=== PATIENT | female | born 1980 | race Caucasian/White ===

== ENCOUNTER 2019-01-28 13:20 | Outpatient (RCR) | payer OTHER, SELFPAY | END 2019-02-01 23:59 | LOC: NS 13:20 | PROVIDERS: Visit Provider Family Medicine | DX: Z71.3 Dietary counseling and surveillance (principal); E66.3 Overweight; Z68.41 Body mass index [BMI] 40.0-44.9, adult | CPT/HCPCS: 97802 ==

== ENCOUNTER 2019-02-14 11:59 | Outpatient (RCR) | payer OTHER, SELFPAY ==
[2014-10-03 16:41] VITALS: BMI 38.5
== END 2019-03-04 23:59 ==
LOC: NS 11:59
PROVIDERS: Visit Provider Family Medicine
DX: Z71.3 Dietary counseling and surveillance (principal); E66.3 Overweight; Z68.41 Body mass index [BMI] 40.0-44.9, adult
CPT/HCPCS: 97803

== ENCOUNTER 2019-04-04 13:00 | Outpatient (RCR) | payer OTHER, SELFPAY ==
[2014-10-03 16:41] VITALS: BMI 38.5
== END 2019-04-04 23:59 ==
LOC: NS 13:00
PROVIDERS: Visit Provider Family Medicine
DX: Z71.3 Dietary counseling and surveillance (principal); E66.3 Overweight; Z68.41 Body mass index [BMI] 40.0-44.9, adult
CPT/HCPCS: 97803

== ENCOUNTER 2019-04-22 14:31 | Outpatient (RCR) | payer OTHER, SELFPAY ==
[2014-10-03 16:41] VITALS: BMI 38.5
== END 2019-05-03 23:59 ==
LOC: NS 14:31
PROVIDERS: Visit Provider Family Medicine
DX: Z71.3 Dietary counseling and surveillance (principal); E66.3 Overweight; Z68.41 Body mass index [BMI] 40.0-44.9, adult
CPT/HCPCS: 97803

== ENCOUNTER → 2019-05-09 13:00 | Outpatient (CLI) | payer OTHER, SELFPAY ==
--- NOTE | 2019-05-05 20:40 | HP.PCM_ITS ---
History and Physical History and Physical [facility] Patient Name: Renetta Cyr : 1980 From: LEONORA MORTON PA-C DATE OF SURGERY: 05/28/2019 SCHEDULED PROCEDURE: right total hip arthroplasty with femoral osteotomy HISTORY OF PRESENT ILLNESS: Preoperative history and physical exam was performed on May 05, 2019. This is a 39-year-old female who has had ongoing pain for many years and bilateral hips. It has recently increased over the past year. Right hip hurts worse than the left hip. Her pain has been intermittent, aching, sharp, stabbing. Pain is increased with going up and down stairs, sitting, walking. Patient does complain of pain for years due to defect. She does have hip surgery at the age of 6 with pins and plates. Patient's pain can reach as high as a 9/10 with activity. She has difficult time with activities of daily living including getting dressed, housework, shopping, leisure activity such as hiking and bike riding. She does have start up pain. Pain occasionally wakes her at night. Patient is unable to lay flat. Patient has tried rest, ice, heat, elevation with no relief in symptoms. She has tried oral medications consisting of tramadol, Tylenol, ibuprofen, Neurontin with minimal relief. She has had previous corticosteroid injections with pain management. Patient has been through physical therapy and home exercises with minimal relief. Patient currently denies any chest pain, shortness of breath, fevers chills, recent infections. She has a medical history pertinent for sleep apnea and asthma. She states she has CPAP machine but has not used this for years. We are obtaining surgical clearance from the primary care physician Dr. Aguilera. After failing conservative measures and discussing treatment options with Dr. Rafael Kay, the patient does wish to proceed with a right total hip arthroplasty with femoral osteotomy. REVIEW OF SYSTEMS: ROS: Const: Reports change in appetite, but denies anorexia, anxiety, fever and weight change,hard of hearing, and vision problems. CV: Denies chest pain, heart murmur, irregular heartbeat and peripheral vascular disease. Resp: Reports cough, but denies asthma, pneumonia, sleep apnea, shortness of breath, tuberculosis and wheezing. GI: Denies constipation, diarrhea, heartburn, nausea, bloody stools and vomiting, and difficulty swallowing. : Denies incontinence. Musculo: Reports trouble walking, limp and weakness, but denies leg swelling. Skin: Reports tattoo, but denies Raynaud's. Neuro: Reports difficulty with balance and numbness/tingling but denies ambulatory dysfunction, dizziness and tremor. Psych: Denies anxiety, depression, insomnia, mental illness and stress. Clark/Lymph: Denies anemia, bleeding/bruising tendency and past transfusion. Reviewed and updated. PAST MEDICAL HISTORY: Advance Care Plan: No Advance Directives Effective Date: 02/21/2019 PMH: Medical Problems: Arthritis, Hip Dysplasia, Sleep Apnea, Asthma Accidents: None Surgical Hx: ORIF Hip - [place] 1985 [facility] Dr. Christopher Dental Work - (2017) Section - (2003) D&C - 2000 Anesthesia Complications: None Assistive Devices: Glasses, Dentures, Cpap Reviewed and updated. SOCIAL HISTORY: SH: Marital: .Occupation: Homemaker.Work Status: Housewife.Hand Dominance: Right-handed. Personal Habits: Cigarette Use: Former.Smokeless Tobacco: Never Used Smokeless Tobacco.E-Cigarette Use: Never used.Alcohol: Occasionally.Drug Use: Denies Use.Enjoy Exercising: Daily. Reviewed and updated. VITALS: Ht: 61 Wt: 213lb Wt k.617 BMI: 40.2 BP: 117/76 Pulse: 77 Resp: 16 T: 98.1 T: 36.7C ALLERGIES: Pyridium Doxycycline MEDICATIONS: 1 tab by mouth daily, Ibuprofen 200 mg 2 tablets by mouth for pain as needed, Acetaminophen 325 mg 2 tablets every 6 hours for pain, Probiotic 1 tab by mouth daily, Allergy 25 mg 1po qday PRE-OP EXAM: General appearance:NORMAL Other: Eyes: Conjunctivae and lids: NORMAL Pupils: ERR Ears, Nose, Mouth, and Throat: NORMAL Other: Inspection of lips, teeth and gums: NORMAL Other: Neck: Examination of neck: no masses noted. Respiratory: Assessment of respiratory effort: NORMAL Other: Auscultation of lungs: clear to auscultation no wheezes, rhonchi or rales. Cardiovascular: Auscultation of heart: regular rate and rhythm, no murmurs, gallops or rubs. Exam of carotid arteries: NORMAL Other: Gastrointestinal: Exam of abdomen: soft, nontender, nondistended bowel sounds present. PHYSICAL EXAMINATION: Patient walks with an antalgic gait. Patient has previous incisions which are well healed without erythema or signs of infection. Patient has limited internal and external rotation of the hips. Flexion is limited to 70. Patient is able to plantarflex and dorsiflex bilaterally. Sensation intact to light touch. IMAGING STUDIES: Previous x-rays of bilateral hips shows severe dysplasia with pseudoacetabulum. Overall hip center appears to be roughly 5-6 cm elevated from the original hip center. No appreciable fracture, lytic or blastic lesions. IMPRESSION: 1. Severe Right hip dysplasia 2. Severe left hip dysplasia 3. Asthma 4. Sleep apnea PLAN: Dr. Rafael Kay did discuss and review with the patient all treatment options including surgical versus nonsurgical options. Patient does wish to proceed with the above-stated procedure. Potential risks, benefits, and complications of the procedure were discussed in detail including but not limited to , infection, nerve and blood vessel damage, persistent pain, numbness, tingling, paresthesias, blood clot, pulmonary embolism, and requirement for possible further surgery. The patient expressed full understanding and has no further questions for the doctor. Patient does agree to proceed with the above-stated procedure and has signed the surgery consent form. This dictation was created using voice recognition software. Phonetic and/or grammatical errors may exist. ___ I have re-examined the patient. There are no clinical changes since date of exam. ___ See progress notes for changes. ___ Dictated on admission Date: Time: Signature:
[2019-05-09 13:12] VITALS: BP 130/86; PULSE 79; RESP 18; TEMP 37; O2SAT 97; BMI 40.9
--- NOTE | 2019-05-09 13:31 | SDCEKG_ITS ---
Test Reason : Blood Pressure : / mmHG Vent. Rate : 078 BPM Atrial Rate : 078 BPM P-R Int : 130 ms QRS Dur : 084 ms QT Int : 372 ms P-R-T Axes : 013 065 009 degrees QTc Int : 424 ms Normal sinus rhythm Normal ECG Confirmed by ROWAN PATEL ([id number]), pictures editor JOAQUIN ZAMORA ([id number]) on 05/15/2019 7:22:34 AM Referred By: Rafael Kay Confirmed By:ROWAN PATEL
[2019-05-09 14:06] LABS: Absolute Lymphocyte Count 1.74 X10^3/uL (0.83-4.51); Absolute Neutrophil Count 5.1 X10^3/uL (2.0-7.7); Basophil# 0.03 X10^3/uL; Basophil% 0.4 % (0-1); Eosinophil# 0.08 X10^3/uL; Eosinophils% 1.1 % (0-5); Hematocrit 40.5 % (37-47); Hemoglobin 13.7 g/dL (12.0-15.0); Lymphocyte # 1.74 X10^3/ul (4.0); Lymphocyte % 23.5 % (19-41); Mean Corp Hgb Conc 33.8 g/dL (32-36); Mean Corpuscular Volume 85.6 fL (81-99); Mean Platelet Vol. 11.1 fl (6.2-12.0); Monocyte# 0.44 X10^3/uL; Monocyte% 5.9 % (0-10); NRBC Flagged by Analyzer 0 % (0-5); Neutrophil # 5.09 X10^3/uL (2.7-7.7); Neutrophil % 68.7 % (47-70); Platelet Count 215 K/mm3 (150-450); RBC Distribution Width SD 37.4 fl (35.1-43.9); Red Blood Count 4.73 M/mm3 (4.2-5.4); White Blood Count 7.4 K/mm3 (4.4-11.0)
[2019-05-09 14:25] LABS: Anion Gap 5 (5-15); BUN 13 mg/dL (7-18); BUN/Creat Ratio 17.4 RATIO (10-20); Calcium,Total 9.1 mg/dL (8.5-10.1); Chloride 107 mmol/L (98-107); Creatinine, Serum 0.75 mg/dL (0.55-1.02); EST Glomerular Filtration Rate 92 mL/min (>60); Est Glom Filt Rate - Afr Amer 111 mL/min (>60); Estimated Creatinine Clearance 149.92 ml/min; Glucose 89 mg/dL (74-106); Potassium 3.9 mmol/L (3.5-5.1); Sodium Level 139 mmol/L (136-145)
== END ==
PROVIDERS: PCP Family Medicine; Referring Provider Specialist; Visit Provider Specialist
DX: Z01.818 Encounter for other preprocedural examination (principal); Q65.89 Other specified congenital deformities of hip; J45.909 Unspecified asthma, uncomplicated; G47.30 Sleep apnea, unspecified
CPT/HCPCS: 80048; 85025; 87081; 93005

== ENCOUNTER → 2019-05-09 13:49 | Outpatient (CLI) | payer OTHER, SELFPAY ==
[2019-05-09 13:12] VITALS: BMI 40.9
--- NOTE | 2019-05-09 13:59 | CT_ITS ---
STUDY: CT SCAN HIP RIGHT REASON FOR EXAM: Female, 39 years old. CONGENITAL DEFORMITIES of both hips. Prev hip surgery but no hardware at this time. RADIATION DOSAGE (If Supplied By Facility): CTDIvol = ( 24.07 ) mGy, DLP = ( 1312.18 ) mGycm. Individualized dose optimization techniques were used for this CT.? TECHNIQUE: Multiple axial tomographic images of both hips were obtained without intravenous contrast menstruation. Sagittal and coronal reconstruction was obtained as well. COMPARISON: None. FINDINGS: There is evidence of a deformities of the femoral neck and head with the superior dislocation of both hip joints. The acetabula are very shallow. There is evidence of atherosclerosis of the anterior aspect of the right iliac bone in the supra-acetabular region where there is the new hip joint. 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
== END ==
PROVIDERS: PCP Family Medicine; Referring Provider Specialist; Visit Provider Specialist
DX: Q65.89 Other specified congenital deformities of hip (principal)
CPT/HCPCS: 73700

== ENCOUNTER 2019-05-23 10:00 | Outpatient (RCR) | payer OTHER, SELFPAY ==
[2014-10-03 16:41] VITALS: BMI 38.5
== END 2019-06-03 23:59 ==
LOC: NS 10:00
PROVIDERS: PCP Family Medicine; Visit Provider Family Medicine
DX: Z71.3 Dietary counseling and surveillance (principal); E66.3 Overweight; Z68.41 Body mass index [BMI] 40.0-44.9, adult
CPT/HCPCS: 97803

== ENCOUNTER 2019-06-17 13:34 | Outpatient (RCR) | payer OTHER, SELFPAY ==
[2019-05-09 13:12] VITALS: BMI 40.9
== END 2019-07-03 23:59 ==
LOC: NS 13:34
PROVIDERS: PCP Family Medicine; Visit Provider Family Medicine
DX: Z71.3 Dietary counseling and surveillance (principal); E66.3 Overweight; Z68.41 Body mass index [BMI] 40.0-44.9, adult
CPT/HCPCS: 97803

== ENCOUNTER 2019-07-24 13:00 | Outpatient (RCR) | payer OTHER, SELFPAY ==
[2019-05-09 13:12] VITALS: BMI 40.9
== END 2019-08-03 23:59 ==
LOC: NS 13:00
PROVIDERS: PCP Family Medicine; Visit Provider Family Medicine
DX: Z71.3 Dietary counseling and surveillance (principal); E66.3 Overweight; Z68.41 Body mass index [BMI] 40.0-44.9, adult
CPT/HCPCS: 97803

== ENCOUNTER 2019-08-05 14:47 | Outpatient (RCR) | payer OTHER, SELFPAY ==
[2019-05-09 13:12] VITALS: BMI 40.9
== END 2019-09-02 23:59 ==
LOC: NS 14:47
PROVIDERS: PCP Family Medicine; Visit Provider Family Medicine
DX: Z71.3 Dietary counseling and surveillance (principal); E66.3 Overweight; Z68.41 Body mass index [BMI] 40.0-44.9, adult
CPT/HCPCS: 97803

== ENCOUNTER → 2020-11-05 16:51 | Outpatient (CLI) | payer OTHER, SELFPAY | PROVIDERS: PCP Family Medicine; Visit Provider Physician Assistant Surgical | DX: R09.81 Nasal congestion (principal) | CPT/HCPCS: 87635; U0005; U0003 ==